=== PATIENT | male | born 1985 | race Two or more races ===

== ENCOUNTER 2017-04-10 01:32 | Emergency (ER) | payer SELFPAY ==
[~2017-04-10] VITALS: Ht 172.7 cm; Wt 94.3 kg
[~2017-04-10 01:32] MED LIST: HYDR25TA PO; SULF1TAB24 PO
[2017-04-10 01:40] VITALS: BP 142/92
[2017-04-10] MEDS ORDERED: TETRACAINE 0.5% OPHTH SOLUTION 4ML BOTTLE. OD ONE (02:30)
[2017-04-10] MEDS ORDERED: FLUORESCEIN OPHTH TEST STRIP. OD ONE (02:30)
[2017-04-10] MEDS ORDERED: CIPR2.5D OD (02:53)
--- NOTE | 2017-04-10 02:53 | PHYS DOC ---
Past Medical History Past Medical History: No Pertinent History Past Surgical History: No Surgical History Alcohol Use: None Drug Use: None Adult General Chief Complaint Chief Complaint: EYE PROBLEMS HPI HPI 31-year-old otherwise healthy male presenting to the emergency department after feeling a foreign body sensation in his right eye. He reports this being present for the past 4 days. It is unclear why he did not come in earlier. He reports pain and itching sensation in his right eye with mild redness. No alleviating or exacerbating factors present. Nonradiating. Review of systems is negative for vision changes headache abdominal pain nausea vomiting. All other review of systems is negative unless otherwise noted in history of present illness. Pertinent physical exam findings: The patient's right eye has normal visual acuity. The external structures are within normal limits. Conjunctiva shows mild injection more on the medial aspect than the lateral aspect. The patient does have a very small foreign body on the inferior medial region not involving the middle cornea. There is a rust ring present. Otherwise the lens is clear. Fluorescein testing shows no abrasion or ulceration. Jory's test negative. ED course: 31-year-old gentleman presenting with a foreign body with a rust ring on his right eye. 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 No evidence of open globe. I gently used a cotton swab to attempt to remove the foreign body however unfortunately because of the rust ring and the time duration of the foreign body being in the eye I was unable to remove the foreign body. I discussed the case with Dr. Tan who agreed to follow the patient. He said he may have time in the afternoon that he would be able to remove the foreign body and rust ring. I prescribed the patient a topical antibiotic eye ointment to follow-up with our ophthalmology team for removal within 1-2 days. The patient is Vietnamese-speaking only and a formal inspector aide line was used to explain the circumstances. Review of Systems Review of Systems SEE ABOVE. Current Medications Current Medications Current Medications Medications (Trade) Dose Ordered Sig/Queenie Start Time Stop Time Status Last Admin Dose Admin Fluorescein Sodium (Ful-Shona) 1 strip 1X ONCE 04/10/17 02:30 04/10/17 02:31 DC 04/10/17 02:25 1 STRIP Tetracaine HCl (Tetracaine) 1 drop 1X ONCE 04/10/17 02:30 04/10/17 02:31 DC 04/10/17 02:25 1 DROP Allergies Allergies Allergies Coded Allergies Type Severity Reaction Last Updated Verified No Known Drug Allergies 05/20/16 No Physical Exam Physical Exam Constitutional: Well developed, well nourished, no acute distress, non-toxic appearance. [] HENT: Normocephalic, atraumatic, bilateral external ears normal, oropharynx moist, no oral exudates, nose normal. [] Eyes: PERRLA, EOMI. see above Neck: Normal range of motion, no tenderness, supple, no stridor. [] Cardiovascular:Heart rate regular rhythm, no murmur [] Lungs & Thorax: Bilateral breath sounds clear to auscultation [] Abdomen: Bowel sounds normal, soft, no tenderness, no masses, no pulsatile masses. [] Skin: Warm, dry, no erythema, no rash. [] Back: No tenderness, no CVA tenderness. [] Extremities: No tenderness, no cyanosis, no clubbing, ROM intact, no edema. [] Neurologic: Alert and oriented X 3, normal motor function, normal sensory function, no focal deficits noted. [] Psychologic: Affect normal, judgement normal, mood normal. [] Current Patient Data Vital Signs Vital Signs Date Time Temp Pulse Resp B/P (MAP) Pulse Ox O2 Delivery O2 Flow Rate FiO2 04/10/17 01:40 98.7 62 18 98 Room Air 98.7 EKG EKG [] Radiology/Procedures Radiology/Procedures [] Course & Med Decision Making Course & Med Decision Making Pertinent Labs and Imaging studies reviewed. (See chart for details) [] Dragon Disclaimer Dragon Disclaimer This electronic medical record was generated, in whole or in part, using a voice recognition dictation system. Departure Departure Impression: Primary Impression: Corneal rust ring Additional Impressions: Corneal rust ring of right eye Foreign body Disposition: HOME, SELF-CARE Condition: STABLE Referrals: NO PCP (PCP) CATHERINE INTERIANO MD Patient Instructions: Eye - Foreign Body Additional Instructions: Thank you for allowing us to participate in your care today. Followup with your primary care physician in 3 days if your symptoms do not improve. If you do not have a primary care provider you can ask for a list of our primary care providers. Return to the emergency department you have any new or concerning findings. This should be evaluated by the primary care physician and any necessary consulting services for continued management within a few days after discharge. Return to emergency room if you have any new or concerning symptoms including but not limited to fever, chills, nausea, vomiting, intractable pain, any new rashes, chest pain, shortness of air, uncontrolled bleeding, difficulty breathing, and/or vision loss. Scripts Ciprofloxacin Hcl (CIPROFLOXACIN HCL) 2.5 Ml Drops 1 DROP OD QID for 5 Days, #5 ML Prov: RICHAR BURROUGHS MD 04/10/17 Problem Qualifiers RICHAR BURROUGHS MD Apr 10, 2017 02:53
== END 2017-04-10 03:25 | disposition home or self-care (01) ==
LOC: ER 01:32
DX: T15.01XA Foreign body in cornea, right eye, initial encounter (principal); X58.XXXA Exposure to other specified factors, initial encounter; Y93.89 Activity, other specified; Y92.89 Other specified places as the place of occurrence of the external cause; Y99.8 Other external cause status
CPT/HCPCS: 65220; 99284-25

== ENCOUNTER 2020-01-21 21:34 | Emergency (ER) | payer SELFPAY ==
[~2020-01-21] VITALS: Ht 172.7 cm; Wt 109.0 kg
[~2020-01-21 21:34] MED LIST changes: +CIPR2.5D OD
--- NOTE | 2020-01-21 21:59 | PHYS DOC ---
Past Medical History Past Medical History: No Pertinent History Past Surgical History: No Surgical History Smoking Status: Current Some Day Smoker Alcohol Use: None Drug Use: None Adult General Chief Complaint Chief Complaint: FOREIGN BODY HPI HPI 34-year-old male presents to the emergency department complaints of pain with swallowing. Patient states he ate steak around 1 hour ago states he has had difficulty swallowing since then and pain. He is able to tolerate liquids results as well as solid food. Patient denies any fever, cough, nausea or vomiting. He has underlying history of hypertension as well as hyperlipidemia. Swallowing makes his pain worse. Review of Systems Review of Systems Constitutional: Denies fever or chills [] HENT: Denies nasal congestion or sore throat [] Respiratory: Denies cough or shortness of breath [] Cardiovascular: No additional information not addressed in HPI [] GI: Denies abdominal pain, nausea, vomiting, bloody stools or diarrhea [] Musculoskeletal: Denies back pain or joint pain [] Neurologic: Denies headache, focal weakness or sensory changes [] All other systems were reviewed and found to be within normal limits, except as documented in this note. Current Medications Current Medications Current Medications Medications (Trade) Dose Ordered Sig/Queenie Start Time Stop Time Status Last Admin Dose Admin Glucagon (Glucagen) 1 mg 1X ONCE 01/21/20 22:15 01/21/20 22:16 DC 01/21/20 22:49 1 MG Multi-Ingredient Mouthwash/Gargle (Gi Cocktail) 20 ml 1X ONCE 01/21/20 23:00 01/21/20 23:01 Allergies Allergies Allergies Coded Allergies Type Severity Reaction Last Updated Verified No Known Drug Allergies 05/20/16 No Physical Exam Physical Exam Constitutional: Well developed, well nourished, no acute distress, non-toxic appearance. [] HENT: Normocephalic, atraumatic, bilateral external ears normal, oropharynx moist, no oral exudates, nose normal. [] Cardiovascular:Heart rate regular rhythm, no murmur [] Lungs & Thorax: Bilateral breath sounds clear to auscultation [] Abdomen: Bowel sounds normal, soft, no tenderness, no masses, no pulsatile masses. [] Skin: Warm, dry, no erythema, no rash. [] Extremities: No tenderness, no edema. [] Neurologic: Alert and oriented X 3, no focal deficits noted. [] Psychologic: Affect normal, judgement normal, mood normal. [] Current Patient Data Vital Signs Vital Signs Date Time Temp Pulse Resp B/P (MAP) Pulse Ox O2 Delivery O2 Flow Rate FiO2 01/21/20 21:45 98.0 57 24 140/91 (107) 97 Room Air 98.0 EKG EKG [] Radiology/Procedures Radiology/Procedures [facility] [address] [place] [address] IMAGING REPORT Signed PATIENT: JESSEE FRAIREACCOUNT: [id number] : 1985 LOCATION: ER AGE: 34 SEX: M EXAM STATUS: REG ER ORD. PHYSICIAN: SADIA MOTA MD REASON: Food Bolus in Throat PROCEDURE: NECK SOFT TISSUE Exam: Neck radiographs 2 views INDICATION: Food bolus and throughout TECHNIQUE: Frontal and lateral views of the neck Comparisons: None FINDINGS: Vertebral body heights and alignment are well-maintained. Prevertebral soft tissues are normal. No radiopaque foreign body identified. Visualized lung apices are clear. IMPRESSION: No radiopaque foreign body identified. Electronically signed by: Chanelle Woods MD (01/21/2020 10:39 PM) [id number] DICTATED and SIGNED BY: CHANELLE WOODS MD DATE: 01/21/202238 [] Course & Med Decision Making Course & Med Decision Making Pertinent Labs and Imaging studies reviewed. (See chart for details) [] 34-year-old male presents to the emergency department complaints of pain with swallowing. Patient states he ate steak around 1 hour ago states he has had difficulty swallowing since then and pain. He is able to tolerate liquids results as well as solid food. Patient denies any fever, cough, nausea or vomiting. He has underlying history of hypertension as well as hyperlipidemia. Swallowing makes his pain worse. X-ray reviewed without evidence of foreign body Glucagon 1 mg IV x1 Patient complains of pain with swallowing, GI cocktail ordered No evidence of obstructive process Discussed with patient will plan for discharge and follow-up as an outpatient with primary care physician If he has any difficulty with concern for obstruction unable to tolerate liquids, solid food, saliva patient should return to the emergency department Dragon Disclaimer Dragon Disclaimer This electronic medical record was generated, in whole or in part, using a voice recognition dictation system. Departure Departure Impression: Primary Impression: Odynophagia Disposition: HOME, SELF-CARE Condition: STABLE Referrals: NO PCP (PCP) Patient Instructions: Swallowed Foreign Body, Adult, [id number] Additional Instructions: X-ray without evidence of acute process Glucagon and GI cocktail provided in the ER No concern for obstructive process at this time If patient begins to have difficulty swallowing secretions, liquids would recommend returning to the emergency department Follow-up with primary care physician in 3 to 5 days SADIA MOTA MD Jan 21, 2020 21:59
[2020-01-21] MEDS ORDERED: GLUCAGON,HUMAN RECOMBINANT 1 MG/ML VIAL. IV ONE (22:15)
--- NOTE | 2020-01-21 22:42 | RAD ---
Exam: Neck radiographs 2 views INDICATION: Food bolus and throughout TECHNIQUE: Frontal and lateral views of the neck Comparisons: None FINDINGS: Vertebral body heights and alignment are well-maintained. Prevertebral soft tissues are normal. No radiopaque foreign body identified. Visualized lung apices are clear. IMPRESSION: No radiopaque foreign body identified. Electronically signed by: Chanelle Munoz MD (01/21/2020 10:39 PM) [id number]
[2020-01-21] MEDS ORDERED: LIDO:MAALOX 1:1 20 ML SINGLE DOSE. SWSW ONE (23:00)
[2020-01-21 23:45] VITALS: BP 116/66
== END 2020-01-21 23:45 | disposition home or self-care (01) ==
LOC: ER 21:34
DX: R13.10 Dysphagia, unspecified (principal); F17.200 Nicotine dependence, unspecified, uncomplicated
CPT/HCPCS: 70360; 96374; 99283; J1610

== ENCOUNTER → 2022-01-29 | Outpatient (CLI) | payer OTHER ==
[~2022-01-29] MED LIST changes: -CIPR2.5D OD; +CIPR2.5D2 OD; +IOHEXOL 300 MG/ML 100ML VIAL. IV ONE
--- NOTE | 2022-01-29 12:25 | RAD ---
CT HEAD WITHOUT AND WITH IV CONTRAST dated 01/29/2022 8:44 AM Indication:Reason: increase intensity of headaches / Spl. Instructions: omni 300 70ml / History: Comparison: No comparison is available. Technique: CT images were performed before and after injection of 70 mL Omnipaque 300. One or more of the following individualized dose reduction techniques were utilized for this examinat ion: 1. Automated exposure control 2. Adjustment of the mA and/or kV according to patient size 3. Use of iterative reconstruction technique Findings: There is no apparent intracranial mass, hemorrhage or abnormal extra-axial fluid collection. No area of abnormal density is seen in the brain. There is no apparent abnormal contrast enhancement. The qasim tricles and basilar cisterns are normally positioned. Sinuses and mastoid air cells appear clear. IMPRESSION: No apparent intracranial abnormality. Electronically signed by: Garry Ann Jr., MD (01/29/2022 12:23 PM) [id number]
== END ==
LOC: CT 09:21
PROVIDERS: ATTEND Physician Assistant Medical
DX: G44.201 Tension-type headache, unspecified, intractable (principal)
CPT/HCPCS: 70470; Q9967